=== PATIENT | female | born 1960 | race Caucasian/White ===

== ENCOUNTER 2023-12-20 01:05 | Emergency (ER) | payer BC, SELFPAY ==
--- NOTE | ~2023-12-20 | XR_ITS ---
EXAMINATION: XR chest 2V 12/20/2023 01:46 INDICATION: Chest palpitations PROCEDURE: 2 view chest COMPARISON: No prior studies for comparison. FINDINGS: The lungs are clear. The cardiomediastinal silhouette is within normal limits. There are no pleural effusions. There is no pneumothorax suspected. IMPRESSION: 1: NO ACUTE CARDIOPULMONARY DISEASE. Reviewed, dictated and finalized at location B.
--- NOTE | 2023-12-20 01:06 | ECG_ITS ---
Test Date: 2023-12-20 01:15:00 Measurements Intervals [place] Rate: 70 P: 48 OK: 172 QRS: 8 QRSD: 73 T: 12 QT: 375 QTc: 405 Interpretive Statements SINUS RHYTHM WITH SINUS ARRHYTHMIA CONSIDER INFERIOR INFARCT, AGE INDETERMINATE BORDERLINE ST ABNORMALITY- ANTEROLATERAL LEADS BASELINE ARTIFACT- I, II, AVR, AVL No previous ECG available for comparison ABNORMAL ECG Electronically Signed On 12-20-2023 09:07:42 CDT by Keith López D.O.
[2023-12-20 01:15] VITALS: BP 168/76; PULSE 86; RESP 17; TEMP 36.7; O2SAT 99
[2023-12-20 01:33] LABS: Basophils Percent Auto 0.4 % (0.2-1.2); Eosinophils Absolute Auto 0.1 K/mm3 (0-0.3); Eosinophils Percent Auto 1.3 % (0-4.4); Hematocrit 39.1 % (37.0-47.0); Hemoglobin 13.1 g/dL (12.0-15.0); Immature Granulocyte Absolute 0.01 K/mm3 (0.00-0.031); Immature Granulocyte Percent A 0.1 % (0-0.5); Lymphocytes Absolute Auto 3.08 K/mm3 (0.9-3.2); Lymphocytes Percent Auto 44.8 % (18.3-44.2); Mean Corpuscular HGB Conc 33.5 g/dl (32-36); Mean Corpuscular Hemoglobin 29.3 pg (26-34); Mean Corpuscular Volume 87.5 fl (80-100); Mean Platelet Volume 9.4 fl (7.4-10.4); Monocytes Absolute Auto 0.4 K/mm3 (0.1-0.6); Monocytes Percent Auto 6.3 % (2.6-8.5); Neutrophils Absolute Auto 3.2 K/mm3 (1.3-6.7); Neutrophils Percent Auto 47.1 % (45.5-73.1); Platelet Count Result 284 k/mm3 (150-375); Red Blood Count 4.47 M/mm3 (4.2-5.4); Red Cell Distribution Width 13.6 % (11.5-14.5); White Blood Count 6.9 K/mm3 (4.5-10.0)
[2023-12-20 01:42] LABS: INR 0.8; Prothrombin Time 11.9 Seconds (11.1-14.7)
[2023-12-20 01:43] LABS: Partial Thromboplastin Time 32.3 Seconds (22.3-36.8)
[2023-12-20 01:44] LABS: Alanine Aminotransferase 13 U/L (6-35); Albumin Level 4.3 g/dL (3.5-5.1); Alkaline Phosphatase 96 U/L (38-126); Anion Gap 9 mmol/L (4-12); Aspartate Amino Transferase 23 U/L (14-36); Bilirubin,Total 0.3 mg/dL (0.2-1.3); Blood Urea Nitrogen 15 mg/dL (7-17); Calcium 9.5 mg/dL (8.4-10.2); Carbon Dioxide 25 mmol/L (22-30); Chloride 104 mmol/L (98-107); Estimated CRCL calculation 58 ml/min; Estimated Glomerular Filt Rate > 60; Glucose 111 mg/dL (65-110); Lipase 146 U/L (23-300); Potassium 3.8 mmol/L (3.4-5.0); Sodium 138 mmol/L (137-145)
[2023-12-20 01:55] LABS: Troponin I < 0.012 ng/mL (0.000-0.034)
--- NOTE | 2023-12-20 03:40 | ED.ARRPALP ---
HPI - Arrhythmia/Palpitations General Chief Complaint: Arrhythmia/Palpitations Stated Complaint: Elevated bp, racing heart Time Seen by Provider: 12/20/23 02:30 History of Present Illness HPI narrative: 63-year-old female with no past medical history presenting to the emergency department for evaluation of elevated blood pressure and palpitations sensation for the last week. She called her PCP and was told to come to the emergency department as she was having chest heaviness and palpitations. She denies any history of hypertension but has been monitoring her blood pressure at home and has been elevated in the 160s to 170s range. Not presently taking blood thinner or antihypertensives. No trauma, recent injuries, surgeries, long travel. No present chest pain or discomfort, no shortness of breath, nausea, vomiting, abdominal pain, weakness, fatigue, neurological complaints. She has no symptoms at this time and is just concerned that her blood pressure was high. Her primary care provider has not started her on blood pressure medicines yet Related Data Allergies Allergy/AdvReac Type Severity Reaction Status Date / Time No Known Allergies Allergy Verified 12/20/23 01:18 Review of Systems Review of Systems: As reviewed above in HPI Exam Narrative: GENERAL: [Well-appearing, well-nourished, and in no acute distress.] HEAD: [Normocephalic, atraumatic.] EYES: [PERRLA and EOMI.] ENT: Nares clear, no rhinorrhea or epistaxis. Mucous membranes moist. NECK: Supple. CHEST: [Clear to auscultation. No respiratory distress.] HEART: [Regular rate and rhythm]. No murmur heard. [Normal peripheral pulses.] ABDOMEN: [Soft, nondistended], [nontender], [No rigidity or guarding] EXTREMITIES: Normal range of motion. [No edema.] SKIN: Warm, dry, no rash. NEURO: [No focal deficits]. Alert and oriented [x3.] PSYCH: [Normal mood and affect.] Course Vital Signs Vital signs: Vital Signs Temperature 36.7 C 12/20/23 01:15 Pulse Rate 86 12/20/23 01:15 Respiratory Rate 17 12/20/23 01:15 Blood Pressure 168/76 H 12/20/23 01:15 Pulse Oximetry 99 12/20/23 01:15 Oxygen Delivery Room Air 12/20/23 01:15 Temperature 36.7 C 12/20/23 01:15 Pulse Rate 98 12/20/23 03:48 Respiratory Rate 18 12/20/23 03:48 Blood Pressure 140/80 12/20/23 03:48 Pulse Oximetry 98 12/20/23 03:48 Oxygen Delivery Room Air 12/20/23 01:15 MDM - Arrhythmia/Palpitations MDM Narrative Medical decision making narrative: 63-year-old female presenting for hypertension. She has been experiencing palpitations and elevated blood pressure for the past week. Presently she is asymptomatic and denies any chest pressure, shortness a breath, nausea, vomiting, diaphoresis, neurological complaints. She has mild elevated blood pressure 168/76 but otherwise reassuring vital signs. Normal cardiovascular assessment, normal neurological assessment. She is presently asymptomatic experiencing asymptomatic hypertension, however given her reported features of chest pressure this past week a cardiac workup was ordered including serial troponins and x-ray, EKG, electrolyte panel. Wells criteria 0 for DVT/PE. No leukocytosis or anemia. PT PTT within normal limits. Electrolytes within normal limits, normal renal function panel. Glucose 111, negative troponin, normal lipase. Normal hepatic function panel. Chest x-ray was pending. EKG shows no ST segment elevations, depressions, inversions or sign of ischemia. Patient's 2nd troponin also negative, repeat EKG shows no dynamic changes, no signs of acute ST segment elevations, depressions or inversions or any ischemic event. Patient's repeat blood pressure without intervention had normalized. She was re-evaluated and still had no symptoms including chest pain, dyspnea, diaphoresis or any other complaints. She will be sent home on low-dose amlodipine and instructed to follow-up with her primary care provider in t
[2023-12-20 03:47] VITALS: PULSE 98
[2023-12-20 03:48] VITALS: BP 140/80; PULSE 98; RESP 18; O2SAT 98
[2023-12-20 05:22] LABS: Troponin I 0.017 ng/mL (0.000-0.034)
[2023-12-20 06:18] VITALS: BP 134/76; PULSE 82; RESP 16; O2SAT 98
--- NOTE | 2023-12-20 07:16 | ECG_ITS ---
Test Date: 2023-12-20 05:54:12 Measurements Intervals [place] Rate: 70 P: 45 RI: 168 QRS: 14 QRSD: 70 T: 11 QT: 383 QTc: 414 Interpretive Statements SINUS RHYTHM POSSIBLE LEFT ATRIAL ENLARGEMENT VOLTAGE CRITERIA FOR LVH CONSIDER INFERIOR INFARCT, AGE INDETERMINATE BORDERLINE ST-T WAVE ABNORMALITY- ANTERIOR LEADS BASELINE ARTIFACT- I, II, III, AVR, AVL, AVF ABNORMAL ECG Compared to ECG 12/20/2023 01:15:00 NO SIGNIFICANT CHANGE Electronically Signed On 12-20-2023 09:12:53 CDT by Keith López D.O.
== END 2023-12-20 06:19 | disposition home or self-care (01) ==
PROVIDERS: Emergency Provider Student in an Organized Health Care Education/Training Program
DX: I10 Essential (primary) hypertension (principal); R94.31 Abnormal electrocardiogram [ECG] [EKG]
CPT/HCPCS: 36415; 71046; 80053; 83690; 84484; 85025; 85610; 85730; 93005; 99284

== ENCOUNTER 2025-03-08 09:51 | Emergency (ER) | payer BC, SELFPAY ==
--- NOTE | 2025-03-08 09:53 | ED.URI ---
HPI - URI/Sore Throat General Chief Complaint: Upper Respiratory Infection Stated Complaint: Sore Throat Time Seen by Provider: 03/08/25 10:02 Source: patient, RN notes reviewed and old records reviewed Mode of arrival: ambulatory Limitations: no limitations History of Present Illness HPI Narrative: 65-year-old female presents to the [facility] with complaints of a sore throat that started Friday, 4 days ago. Has taken [id number] cold medicine. denies any other symptoms Patient states that she was holding a baby and rocking them and they recently tested positive for strep so she just wants to get checked. reports taking cold medicine. Onset (ago): day(s) (4) Treatments prior to arrival: cold medicine Related Data Home Medications ?Medication ?Instructions ?Recorded ?Confirmed ?Last Taken ?Type ezetimibe 10 mg tablet mg 03/08/25 Unknown History losartan 50 mg tablet mg 03/08/25 Unknown History Allergies Allergy/AdvReac Type Severity Reaction Status Date / Time No Known Allergies Allergy Verified 03/08/25 10:11 Review of Systems Review of Systems: All systems reviewed & are unremarkable except as noted in HPI and below Constitutional: Constitutional: Reports no additional constitutional complaints ENT: Reports as per HPI and Reports sore throat Cardiovascular: Cardiovascular: Reports no additional cardiovascular complaints, Denies chest pain and Denies dyspnea Respiratory: Respiratory: Reports no additional respiratory complaints, Denies chest congestion, Denies cough and Denies dyspnea Musculoskeletal: Musculoskeletal: Reports no additional musculoskeletal complaints Integumentary/Breasts: Skin/Breast: Reports system reviewed and no additional complaints, except as docu PMFSH Past Medical History Medical History (Updated 03/08/25 @ 10:13 by Susan Thomas APRN) History of high blood pressure Comments At the time of my signature, I reviewed and agree with the nursing past medical, surgical, social, and family history. There is no relevant family history pertinent to the patient complaint. Exam Const: General: cooperative, healthy appearing, comfortable, no acute distress, well developed, alert and well nourished Nutritional Appearance: well nourished Orientation/consciousness: patient oriented x3 Limitations: no limitations HENMT: Head: normal to inspection Ears: hearing grossly normal bilaterally, external ears normal, TM's normal bilaterally, EAC's normal, mastoids normal and no periauricular adenopathy Face and sinus: normal facial exam and face symmetric Mouth: Yes Normal oral and palatal mucosa present, Yes lip normal, Yes tongue normal and Yes moist mucous membranes Throat: posterior oropharynx normal, uvula midline, postnasal drainage and no uvular edema Eyes: General: appearance normal, both eyes and all related structures Alignment and Position: alignment normal Neck: Neck: normal visual inspection, full ROM, no lymphadenopathy and no meningeal signs Chest: Chest palpation & inspection: normal inspection of the chest Resp: Effort & Inspection: normal respiratory effort and able to speak in complete sentences Auscultation: clear to auscultation bilaterally, no crackles, no rales, no rhonchi and no wheezes Cardio: Rate: regular rate Skin: General skin exam: normal color and no rashes or lesions noted Neuro: General: patient oriented x3, gait normal, moves all extremities and no meningeal signs Cognition (Neuro): normal cognition Speech: normal speech Gait exam (Neuro): Normal gait present Extrem: General: normal to inspection, full ROM, capillary refill normal and normal gait Psych: Appearance: grossly normal and well kempt Mental Status: mental status grossly normal Speech and movement: Normal speech and movement present and Clear speech present Affect: normal affect Attitude: cooperative Course Course Level of Care: Express Care Visit Vital Signs Vital signs: Vital Signs Temperature 97.7 F 03/08/25 10:06 Pulse Rate 68 03/08/25 10:06 Respiratory Rate 20 03/08/25 10:06 Blood Pressure 112/72 03/08/25 10:06 Pulse Oximetry 100 03/08/25 10:06 Oxygen Delivery Room Air 03/08/25 10:06 Temperature 97.7 F 03/08/25 10:06 Pulse Rate 68 03/08/25 10:06 Respiratory Rate 20 03/08/25 10:06 Blood Pressure 112/72 03/08/25 10:06 Pulse Oximetry 100 03/08/25 10:06 Oxygen Delivery Room Air 03/08/25 10:06 reviewed MDM MDM Narrative Medical decision making narrative: patient sitting in exam room. Patient is nontoxic, vitals stable. Patient presents with a sore throat for 4 days. Strep test negative, will culture. No acute findings other than postnasal drainage noted on exam. Patient is appropriate for outpatient treatment of viral pharyngitis with close follow-up Discharge instructions reviewed with patient, as well as provided in writing per nursing staff. The instructions also include specific and strict return/GO TO THE ER as well as f/u information. All questions have been answered, and the patient deny any further questions with discharge and discharge plan. Some parts of this dictation were generated by voice recognition software and may contain typographical and/or grammatical inaccuracies. Differential Diagnosis Differential Diagnosis: Differential diagnostic considerations for upper respiratory infection include upper respiratory infection, croup, otitis media, sinusitis, viral infection, bronchitis, influenza, pharyngitis, strep, uvulitis.? Medical Records I have reviewed the following patient records and this information was taken into consideration when formulating the assessment and plan.: previous ER visits Lab Data Labs: negative strep a Discharge Plan Discharge Clinical Impression: Pharyngitis Qualifiers: Pharyngitis/tonsillitis etiology: unspecified etiology Qualified Code(s): J02.9 - Acute pharyngitis, unspecified Patient Disposition: Home Condition: Stable Instructions: Pharyngitis (ED) Additional Instructions: Your rapid strep swab was negative today at [facility]. A throat culture will be sent to the laboratory for further testing. If the test is positive, you will receive a phone call within 48 hours and an appropriate antibiotic will be initiated at that time. Your symptoms are likely due to a viral illness, which is not treated with antibiotics. Typically viral infections last 7-10 days, can linger for couple of weeks. It is very important to treat your symptoms. Drink plenty of water, Gatorade, Pedialyte, ice pops or Jell-O. -Alternate Tylenol and Motrin per package directions for fever or pain. You can alternate every 4 hours -Antihistamine medication such as Zyrtec/Claritin/Urszula during the day can help improve symptoms. -doing daily nasal irrigations can help relieve pressure your sinuses. Things like a Neti pot -Use Flonase twice a day for 5 days then daily to help reduce the inflammation and dry up your sinuses. -You can also use Mucinex. Be sure to drink plenty of water with this medication at least 8 ounces with every dose and it is important to drink 8 to 10 glasses of water per day. Water is a natural decongestant -Eat and drink things that are easy to swallow, like tea or soup, or popsicles. -Oral rinses such as: Salt water gargles and/or may use topical anesthetic (eg. Chloraseptic spray) or lozenges to relieve dryness or throat pain). -Frequent hand washing or hand nuclear equipment sales engineer is one of the best ways to prevent spread of infection. -Using a vaporizer or humidifier at night will also help thin secretions and help with coughing up phlegm. -Follow up with primary care provider in 7-10 days if condition is not improving - For new or worsening symptoms go directly to the nearest ER Patient Language: Ukrainian Prescriptions: No Action losartan 50 mg tablet ezetimibe 10 mg tablet amlodipine 5 mg tablet 5 mg PO DAILY Qty: 30 0RF Follow-up/Referrals: Tonio,Kiran Mak MD [Primary Care Provider] - 2 Weeks Clinical Impression: Pharyngitis Stand Alone Forms: Work/School Release IP Time of Disposition: 10:13
[2025-03-08 10:06] VITALS: BP 112/72; PULSE 68; RESP 20; TEMP 36.5; O2SAT 100
[2025-03-08 11:01] LABS: EDSTREPNEGPOS1 Negative (Negative)
== END 2025-03-08 10:17 | disposition home or self-care (01) ==
PROVIDERS: Emergency Provider Nurse Practitioner; PCP Internal Medicine
DX: J02.9 Acute pharyngitis, unspecified (principal); I10 Essential (primary) hypertension
CPT/HCPCS: 87081; 87880; 99213; G0463